=== PATIENT | male | born 1995 | race Caucasian/White ===

== ENCOUNTER 2016-09-28 09:37 | Emergency (ER) | payer OTHER ==
[~2016-09-28] VITALS: Ht 175.3 cm; Wt 65.8 kg
[2016-09-28 10:54] VITALS: BP 154/91
== END 2016-09-28 11:05 | disposition home or self-care (01) ==
LOC: ER 09:47
DX: R07.89 Other chest pain (principal); F41.9 Anxiety disorder, unspecified; F32.9 Major depressive disorder, single episode, unspecified
CPT/HCPCS: 93005

== ENCOUNTER 2019-07-15 09:31 | Emergency (ER) | payer MEDICAID, OTHER ==
[~2019-07-15] VITALS: Ht 175.3 cm; Wt 86.2 kg
[2019-07-15] MEDS ORDERED: chlordiazePOXIDE HCL 5 MG CAP PO ONE (12:45)
[2019-07-15 13:29] VITALS: BP 152/95
== END 2019-07-15 13:55 | disposition home or self-care (01) ==
LOC: ER 09:31
DX: F41.9 Anxiety disorder, unspecified (principal); F10.239 Alcohol dependence with withdrawal, unspecified; F32.9 Major depressive disorder, single episode, unspecified; R05 Cough; R11.0 Nausea; F17.210 Nicotine dependence, cigarettes, uncomplicated; Y90.9 Presence of alcohol in blood, level not specified